=== PATIENT | female | born 1945 | race Caucasian/White ===

== ENCOUNTER 2021-02-01 09:06 | Outpatient (REF) | payer MEDICARE, OTHER, SELFPAY ==
[2021-02-01 11:57] LABS: Alanine Aminotransferase 11 U/L (0-31); Albumin Level 4.3 g/dL (3.5-5.0); Alkaline Phosphatase 72 U/L (39-117); Anion Gap 14 (12-20); Aspartate Amino Transferase 17 U/L (5-31); Bilirubin Total 0.9 mg/dL (0.0-1.0); Blood Urea Nitrogen 17 mg/dL (9-16); Calcium 9.3 mg/dL (8.4-10.2); Carbon Dioxide 28 mmol/L (22-29); Chloride 102 mmol/L (96-108); Cholesterol 164 mg/dL; Estimated Glomerular Filt Rate 49; Glucose Fasting 80 mg/dL (60-99); HDL Cholesterol 65 mg/dL; LDL Cholesterol Calculated 86 mg/dl; Potassium 4.4 mmol/L (3.3-5.1); Sodium 140 mmol/L (135-145); Total Protein 6.7 g/dL (6.5-8.0); Triglycerides 65 mg/dL
[2021-02-01 12:20] LABS: Free T4 (Free Thyroxine) 0.73 ng/dL (0.71-1.85); Thyroid Stimulating Hormone 21.17 uIU/mL (0.32-4.0)
== END 2021-02-01 09:07 | disposition home or self-care (01) ==
LOC: HO.MANLDS 09:06
PROVIDERS: PCP Internal Medicine; Visit Provider Internal Medicine
DX: E78.5 Hyperlipidemia, unspecified (principal); E02 Subclinical iodine-deficiency hypothyroidism; N18.30 Chronic kidney disease, stage 3 unspecified
CPT/HCPCS: 36415; 80053; 80061; 84439; 84443

== ENCOUNTER 2021-06-11 14:26 | Outpatient (REF) | payer MEDICARE, OTHER, SELFPAY ==
[2021-06-11 17:40] LABS: Free T4 (Free Thyroxine) 0.79 ng/dL (0.71-1.85); Thyroid Stimulating Hormone 15.17 uIU/mL (0.32-4.0)
== END 2021-06-11 14:27 | disposition home or self-care (01) ==
LOC: HO.MANLDS 14:26
PROVIDERS: PCP Internal Medicine; Visit Provider Internal Medicine
DX: E03.9 Hypothyroidism, unspecified (principal)
CPT/HCPCS: 36415; 84439; 84443

== ENCOUNTER 2021-07-23 08:58 | Outpatient (REF) | payer BC, SELFPAY ==
[2021-07-23 11:52] LABS: Cholesterol 146 mg/dL; HDL Cholesterol 53 mg/dL; LDL Cholesterol Calculated 80 mg/dl; Triglycerides 69 mg/dL
== END 2021-07-23 08:59 | disposition home or self-care (01) ==
LOC: HO.MANLDS 08:58
PROVIDERS: PCP Internal Medicine; Visit Provider Internal Medicine
DX: E78.00 Pure hypercholesterolemia, unspecified (principal)
CPT/HCPCS: 36415; 80061

== ENCOUNTER 2021-11-27 14:29 | Outpatient (REF) | payer BC, SELFPAY ==
[2021-11-27 19:25] LABS: Alanine Aminotransferase 14 U/L (0-31); Albumin Level 4.2 g/dL (3.5-5.0); Alkaline Phosphatase 79 U/L (39-117); Anion Gap 12 (12-20); Aspartate Amino Transferase 22 U/L (5-31); Blood Urea Nitrogen 15 mg/dL (9-16); Calcium 9.4 mg/dL (8.4-10.2); Carbon Dioxide 29 mmol/L (22-29); Chloride 103 mmol/L (96-108); Estimated Glomerular Filt Rate 48; Glucose Random 68 mg/dL (60-115); Potassium 4.1 mmol/L (3.3-5.1); Sodium 140 mmol/L (135-145); Total Protein 6.7 g/dL (6.5-8.0)
[2021-11-27 19:45] LABS: Free T4 (Free Thyroxine) 0.91 ng/dL (0.71-1.85); Thyroid Stimulating Hormone 10.49 uIU/mL (0.32-4.0)
== END 2021-11-27 14:30 | disposition home or self-care (01) ==
LOC: HO.MANLDS 14:29
PROVIDERS: PCP Internal Medicine; Visit Provider Internal Medicine
DX: E03.9 Hypothyroidism, unspecified (principal); E78.00 Pure hypercholesterolemia, unspecified; I10 Essential (primary) hypertension
CPT/HCPCS: 36415; 80053; 84439; 84443

== ENCOUNTER 2021-12-04 08:01 | Outpatient (REF) | payer BC, SELFPAY ==
[2021-12-04 11:23] LABS: MANUAL DIFF FLAG NO
[2021-12-04 11:31] LABS: Basophils Percent Auto 0.5 % (0-2); Eosinophils Absolute Auto 0.2 X10*3/uL (0.0-0.4); Eosinophils Percent Auto 3.1 % (0-4); Hematocrit 44.8 % (37.0-47.0); Hemoglobin 14.8 g/dl (12.0-16.0); Imm Gran Abs Auto 0.02 X10*3/uL (0.00-0.03); Imm Gran Pct Auto 0.3 % (0.0-0.4); Lymphocytes Absolute Auto 1.6 X10*3/uL (1.2-4.9); Lymphocytes Percent Auto 25.7 % (20-40); Mean Corpuscular Hemoglobin 29.8 pg (27.0-33.0); Mean Corpuscular Volume 90.3 fL (80.0-98.0); Mean Platelet Volume 10.7 fL (9.4-12.3); Monocytes Absolute Auto 0.5 X10*3/uL (0.1-1.2); Monocytes Percent Auto 8.2 % (2-11); Neutrophils Absolute Auto 3.9 x10*3/uL (2.0-8.3); Neutrophils Percent Auto 62.2 % (45-73); Platelet Count 239 X10*3/uL (160-400); Red Blood Count 4.96 X10*6/uL (4.20-5.50); White Blood Count 6.2 X10*3/uL (4.8-10.8)
[2021-12-04 11:58] LABS: Cholesterol 161 mg/dL; HDL Cholesterol 64 mg/dL; LDL Cholesterol Calculated 87 mg/dl; Triglycerides 53 mg/dL
[2021-12-05 12:26] LABS: Calcium (PTHI) 9.1 mg/dL (8.6-10.4); PTHI 86 pg/mL (14-64)
== END 2021-12-04 08:02 | disposition home or self-care (01) ==
LOC: HO.MANLDS 08:01
PROVIDERS: PCP Internal Medicine; Visit Provider Internal Medicine
DX: N18.30 Chronic kidney disease, stage 3 unspecified (principal); E02 Subclinical iodine-deficiency hypothyroidism
CPT/HCPCS: 36415; 80061; 83970; 85025

== ENCOUNTER 2022-05-23 11:48 | Outpatient (REF) | payer BC, SELFPAY ==
[2022-05-23 13:44] LABS: MANUAL DIFF FLAG NO
[2022-05-23 13:51] LABS: Basophils Percent Auto 0.5 % (0-2); Eosinophils Absolute Auto 0.2 X10*3/uL (0.0-0.4); Eosinophils Percent Auto 2.8 % (0-4); Imm Gran Abs Auto 0.03 X10*3/uL (0.00-0.03); Imm Gran Pct Auto 0.4 % (0.0-0.4); Lymphocytes Absolute Auto 1.9 X10*3/uL (1.2-4.9); Lymphocytes Percent Auto 22.2 % (20-40); Mean Corpuscular HGB Conc 32.6 g/dl (31.0-35.0); Mean Corpuscular Hemoglobin 29.1 pg (27.0-33.0); Mean Corpuscular Volume 89.1 fL (80.0-98.0); Mean Platelet Volume 10.2 fL (9.4-12.3); Monocytes Absolute Auto 0.8 X10*3/uL (0.1-1.2); Monocytes Percent Auto 9.3 % (2-11); Neutrophils Absolute Auto 5.4 x10*3/uL (2.0-8.3); Neutrophils Percent Auto 64.8 % (45-73); Platelet Count 252 X10*3/uL (160-400); Red Blood Count 5.16 X10*6/uL (4.20-5.50); Red Cell Distribution Width 12.7 % (11.0-16.0); White Blood Count 8.4 X10*3/uL (4.8-10.8)
[2022-05-23 14:07] LABS: Alanine Aminotransferase 9 U/L (0-31); Albumin Level 3.9 g/dL (3.5-5.0); Alkaline Phosphatase 70 U/L (39-117); Anion Gap 11 (12-20); Aspartate Amino Transferase 16 U/L (5-31); Bilirubin Total 1.1 mg/dL (0.0-1.0); Blood Urea Nitrogen 12 mg/dL (9-16); Calcium 9.2 mg/dL (8.4-10.2); Carbon Dioxide 28 mmol/L (22-29); Chloride 104 mmol/L (96-108); Estimated Glomerular Filt Rate 46; Glucose Random 77 mg/dL (60-115); Potassium 4.7 mmol/L (3.3-5.1); Sodium 138 mmol/L (135-145); Total Protein 6.3 g/dL (6.5-8.0)
[2022-05-23 14:09] LABS: Estimated Average Glucose 100 mg/dL; Hemoglobin A1c % 5.1 %
[2022-05-23 14:29] LABS: Free T4 (Free Thyroxine) 0.94 ng/dL (0.71-1.85); Thyroid Stimulating Hormone 8.76 uIU/mL (0.32-4.0)
[2022-05-23 14:35] LABS: Erythrocyte Sedimentation Rate 10 MM/HR (0-20)
[2022-05-23 14:46] LABS: Folate 10.6 ng/mL (> or = 4.0); Vitamin B12 > 2000 pg/mL (200-900)
== END 2022-05-23 11:49 | disposition home or self-care (01) ==
LOC: HO.MANLDS 11:48
PROVIDERS: Visit Provider Physician Assistant
DX: R41.3 Other amnesia (principal)
CPT/HCPCS: 36415; 80053; 82607; 82746; 83036; 84439; 84443; 85025; 85652; 86140

== ENCOUNTER 2023-06-10 10:52 | Outpatient (REF) | payer BC, SELFPAY ==
[2023-06-10 13:33] LABS: MANUAL DIFF FLAG NO
[2023-06-10 13:50] LABS: Basophils Absolute Auto 0.1 X10*3/uL (0.0-0.2); Basophils Percent Auto 0.8 % (0-2); Eosinophils Absolute Auto 0.2 X10*3/uL (0.0-0.4); Eosinophils Percent Auto 2.4 % (0-4); Hemoglobin 15.1 g/dl (12.0-16.0); Imm Gran Abs Auto 0.07 X10*3/uL (0.00-0.03); Imm Gran Pct Auto 0.9 % (0.0-0.4); Lymphocytes Absolute Auto 1.6 X10*3/uL (1.2-4.9); Lymphocytes Percent Auto 21.5 % (20-40); Mean Corpuscular HGB Conc 32.8 g/dl (31.0-35.0); Mean Corpuscular Hemoglobin 29.4 pg (27.0-33.0); Mean Corpuscular Volume 89.5 fL (80.0-98.0); Monocytes Absolute Auto 0.7 X10*3/uL (0.1-1.2); Neutrophils Absolute Auto 4.9 x10*3/uL (2.0-8.3); Neutrophils Percent Auto 65.4 % (45-73); Platelet Count 234 X10*3/uL (160-400); Red Blood Count 5.14 X10*6/uL (4.20-5.50); Red Cell Distribution Width 13.1 % (11.0-16.0); White Blood Count 7.5 X10*3/uL (4.8-10.8)
[2023-06-10 14:05] LABS: Estimated Average Glucose 94 mg/dL; Hemoglobin A1c % 4.9 %
[2023-06-10 14:55] LABS: Alanine Aminotransferase 9 U/L (0-31); Albumin Level 3.9 g/dL (3.5-5.0); Alkaline Phosphatase 72 U/L (39-117); Anion Gap 12 (12-20); Aspartate Amino Transferase 16 U/L (5-31); Bilirubin Total 1.1 mg/dL (0.0-1.0); Blood Urea Nitrogen 16 mg/dL (9-16); Calcium 9.3 mg/dL (8.4-10.2); Carbon Dioxide 24 mmol/L (22-29); Chloride 106 mmol/L (96-108); Estimated Glomerular Filt Rate 45; Glucose Random 113 mg/dL (60-115); Potassium 4.1 mmol/L (3.3-5.1); Sodium 138 mmol/L (135-145); Total Protein 6.6 g/dL (6.5-8.0)
[2023-06-10 15:13] LABS: Thyroid Stimulating Hormone 10.81 uIU/mL (0.32-4.0)
== END 2023-06-10 10:53 | disposition home or self-care (01) ==
LOC: HO.MANLDS 10:52
PROVIDERS: Visit Provider Physician Assistant
DX: E78.2 Mixed hyperlipidemia (principal); E03.8 Other specified hypothyroidism; N18.31 Chronic kidney disease, stage 3a
CPT/HCPCS: 36415; 80053; 83036; 84439; 84443; 85025

== ENCOUNTER 2023-09-23 12:21 | Outpatient (REF) | payer BC, SELFPAY ==
[2023-09-23 15:13] LABS: Alanine Aminotransferase 10 U/L (0-31); Alkaline Phosphatase 77 U/L (39-117); Anion Gap 15 (12-20); Aspartate Amino Transferase 19 U/L (5-31); Bilirubin Total 0.7 mg/dL (0.0-1.0); Blood Urea Nitrogen 18 mg/dL (9-16); Calcium 9.6 mg/dL (8.4-10.2); Carbon Dioxide 27 mmol/L (22-29); Chloride 104 mmol/L (96-108); Estimated Glomerular Filt Rate > 60; Glucose Random 81 mg/dL (60-115); Potassium 3.9 mmol/L (3.3-5.1); Sodium 142 mmol/L (135-145); Total Protein 6.7 g/dL (6.5-8.0)
[2023-09-23 15:24] LABS: TSH reflex Free T4 1.38 uIU/mL (0.32-4.0)
== END 2023-09-23 12:22 | disposition home or self-care (01) ==
LOC: HO.MANLDS 12:21
PROVIDERS: Visit Provider Internal Medicine
DX: E03.8 Other specified hypothyroidism (principal); N18.31 Chronic kidney disease, stage 3a
CPT/HCPCS: 36415; 80053; 84443

== ENCOUNTER 2024-02-22 14:00 | Outpatient (REF) | payer BC, SELFPAY ==
[2024-02-22 17:49] LABS: MANUAL DIFF FLAG NO
[2024-02-22 17:55] LABS: Basophils Absolute Auto 0.1 X10*3/uL (0.0-0.2); Basophils Percent Auto 0.7 % (0-2); Eosinophils Absolute Auto 0.2 X10*3/uL (0.0-0.4); Eosinophils Percent Auto 2.6 % (0-4); Hematocrit 47.7 % (37.0-47.0); Hemoglobin 15.5 g/dl (12.0-16.0); Imm Gran Abs Auto 0.03 X10*3/uL (0.00-0.03); Imm Gran Pct Auto 0.4 % (0.0-0.4); Lymphocytes Absolute Auto 2.2 X10*3/uL (1.2-4.9); Lymphocytes Percent Auto 25.9 % (20-40); Mean Corpuscular HGB Conc 32.5 g/dl (31.0-35.0); Mean Corpuscular Hemoglobin 29.7 pg (27.0-33.0); Mean Corpuscular Volume 91.4 fL (80.0-98.0); Mean Platelet Volume 10.7 fL (9.4-12.3); Monocytes Absolute Auto 0.8 X10*3/uL (0.1-1.2); Monocytes Percent Auto 9.8 % (2-11); Neutrophils Absolute Auto 5.1 x10*3/uL (2.0-8.3); Neutrophils Percent Auto 60.6 % (45-73); Platelet Count 244 X10*3/uL (160-400); Red Blood Count 5.22 X10*6/uL (4.20-5.50); Red Cell Distribution Width 13.1 % (11.0-16.0); White Blood Count 8.4 X10*3/uL (4.8-10.8)
[2024-02-22 18:27] LABS: Alanine Aminotransferase 10 U/L (0-31); Albumin Level 4.1 g/dL (3.5-5.0); Alkaline Phosphatase 83 U/L (39-117); Anion Gap 16 (12-20); Aspartate Amino Transferase 17 U/L (5-31); Bilirubin Total 0.6 mg/dL (0.0-1.0); Blood Urea Nitrogen 23 mg/dL (9-16); Calcium 9.4 mg/dL (8.4-10.2); Carbon Dioxide 25 mmol/L (22-29); Chloride 105 mmol/L (96-108); Estimated Glomerular Filt Rate 51; Glucose Random 77 mg/dL (60-115); Potassium 4.2 mmol/L (3.3-5.1); Sodium 142 mmol/L (135-145); Total Protein 6.7 g/dL (6.5-8.0)
[2024-02-22 18:29] LABS: Parathyroid Hormone Intact 145.7 pg/mL (8.7-77.1)
[2024-02-22 18:44] LABS: Thyroid Stimulating Hormone 4.41 uIU/mL (0.32-4.0)
== END 2024-02-22 14:01 | disposition home or self-care (01) ==
LOC: HO.MANLDS 14:00
PROVIDERS: Visit Provider Internal Medicine
DX: I10 Essential (primary) hypertension (principal); E03.8 Other specified hypothyroidism; E21.3 Hyperparathyroidism, unspecified
CPT/HCPCS: 36415; 80053; 82306; 83970; 84443; 85025

== ENCOUNTER 2024-08-23 09:54 | Outpatient (REF) | payer BC, SELFPAY ==
[2024-08-23 09:59] LABS: MANUAL DIFF FLAG NO
[2024-08-23 13:28] LABS: Basophils Absolute Auto 0.1 X10*3/uL (0.0-0.2); Basophils Percent Auto 0.7 % (0-2); Eosinophils Absolute Auto 0.2 X10*3/uL (0.0-0.4); Eosinophils Percent Auto 2.4 % (0-4); Hematocrit 45.6 % (37.0-47.0); Hemoglobin 15.2 g/dl (12.0-16.0); Imm Gran Abs Auto 0.01 X10*3/uL (0.00-0.03); Imm Gran Pct Auto 0.1 % (0.0-0.4); Lymphocytes Absolute Auto 1.5 X10*3/uL (1.2-4.9); Lymphocytes Percent Auto 20.9 % (20-40); Mean Corpuscular HGB Conc 33.3 g/dl (31.0-35.0); Mean Corpuscular Hemoglobin 29.7 pg (27.0-33.0); Mean Corpuscular Volume 89.1 fL (80.0-98.0); Mean Platelet Volume 10.8 fL (9.4-12.3); Monocytes Absolute Auto 0.5 X10*3/uL (0.1-1.2); Monocytes Percent Auto 6.8 % (2-11); Neutrophils Absolute Auto 5.1 x10*3/uL (2.0-8.3); Neutrophils Percent Auto 69.1 % (45-73); Platelet Count 212 X10*3/uL (160-400); Red Blood Count 5.12 X10*6/uL (4.20-5.50); Red Cell Distribution Width 13.2 % (11.0-16.0); White Blood Count 7.4 X10*3/uL (4.8-10.8)
[2024-08-23 14:08] LABS: Parathyroid Hormone Intact 126.4 pg/mL (8.7-77.1)
[2024-08-23 18:36] LABS: Alanine Aminotransferase 9 U/L (0-31); Albumin Level 3.9 g/dL (3.5-5.0); Alkaline Phosphatase 61 U/L (39-117); Anion Gap 12 (12-20); Aspartate Amino Transferase 17 U/L (5-31); Bilirubin Total 0.9 mg/dL (0.0-1.0); Blood Urea Nitrogen 18 mg/dL (9-16); Calcium 9.6 mg/dL (8.4-10.2); Carbon Dioxide 28 mmol/L (22-29); Chloride 106 mmol/L (96-108); Estimated Glomerular Filt Rate 58; Glucose Random 102 mg/dL (60-115); Iron 108 mcg/dL (30-160); Percent Iron Saturation 45 % (15-50); Phosphorus 3.5 mg/dL (2.7-4.5); Potassium 3.8 mmol/L (3.3-5.1); Sodium 142 mmol/L (135-145); Total Iron Binding Capacity 239 mcg/dL (228-428); Total Protein 6.4 g/dL (6.5-8.0); Unsaturated Iron Binding 131 ug/dL
== END 2024-08-23 09:55 | disposition home or self-care (01) ==
LOC: HO.MANLDS 09:54
PROVIDERS: Visit Provider Internal Medicine
DX: E21.3 Hyperparathyroidism, unspecified (principal)
CPT/HCPCS: 36415; 80053; 82306; 83540; 83970; 84100; 85025

== ENCOUNTER 2025-02-08 09:40 | Outpatient (REF) | payer BC, SELFPAY ==
--- OUTSIDE RECORDS SUMMARY | 2025-02-08 10:41 | XMS_ITS | Continuity of Care Document ---
Author Organization [facility] Internal [facility], [facility] Internal Medicine Address [address] [place] [address] [place] [address] Assessment No assessment recorded. Plan of Treatment Reminders Order Date Submit Date Provider Last Modified By Organization Details Last Modified Time Details Appointments FOLLOW UP 2024 09:15A M DR CAVANAUGH Not available Not available Not available Nurse Visit 2024 09:30A M [facility] Not available Not available Not available Lab None recorded. Referral None recorded. Procedures None recorded. Surgeries None recorded. Imaging None recorded. Medication Orders Vitamin B-12 1,000 mcg/mL injection solution 2024 025 [id number], [address] [place], [address], 01/30/2025 10:53:09 Patient TargetsNo targets recorded. Patient InstructionsNo instructions recorded. Reason for Referral None Reported. Problems Name Problem SNOMED Code Status Onset Date Resolution Date Notes Provider Name and Address Organization Details Recorded Time Decreased estrogen level 249030162 Active 2018 Ilene pino [facility] Internal [facility] 5 08:10:31 Memory impairment 689497600 Active 2021 Ilene pino [facility] 5 08:10:31 Hypothyroi dism 79861468 Active 2021 Ilene pino [facility] 5 08:10:31 Dementia of frontal lobe type 643136619 Active 2021 Ilene pino [facility] Internal [facility] 5 08:10:31 Bilateral hearing loss 01906262 Active 2022 Ilene pino [facility] 5 08:10:31 Bilateral hearing loss 85423959 Active 2022 Ilene Posadas null, [facility] 5 08:10:31 Osteoarthr itis 855739850 Active 2022 Ilene Posadas null, [facility] 5 08:10:31 Mature cataract 494248 Active 2022 Ilene Posadas null, [facility] 5 08:10:31 Low back pain 396636396 Active 2023 Ilene Posadas null, [facility] 5 08:10:31 Hyperparat hyroidism 23663566 Active 2023 Ilene pino, [facility] 5 08:10:31 Vitamin D deficiency 82204503 Active 2023 Ilene pino, [facility] 5 08:10:31 Basal cell carcinoma of face 873226079 [facility] Cellulitis of lower leg 177478409 Active 2023 Dale Cavanaugh, [address], [address], [facility] 4 20:45:15 Ecchymosis 767877686 [facility] 08:[facility] Vitamin B12 deficiency (non anemic) 53237047 Active 2024 Dale Cavanaugh [address], [address], [facility] 5 09:36:32 Essential hypertensi on 41906973 [facility] 08:[facility] Hyperlipid emia 10270321 Active [facility] 08:10:[facility] Left bundle branch block 19541246 Active 201701/08/16 [facility] 5 08:10:31 Chronic kidney disease stage 3 010427258 Active 2017 [facility] 5 08:10:31 Problem Notes None recorded. Medical Equipment None Reported. Allergies No known drug allergies Medications Name Sig Start Date Stop Date Status Note LastModified by Organization Details LastModified Time celecoxib 200 mg capsule TAKE 1 CAPSULE BY MOUTH EVERY DAY WITH FOOD active Not Available Not Available No t Available prednisone 10 mg tablet take 5 tabs x 3 daystake 4 tabs x 3 daystake 3 tabs x 3 daystake 2 tabs x 3 daystake 1 tab x 3 days 06/13 completed Not Available Not Available Not Available Vitamin B-12 1,000 mcg/mL injection solution Inject 1 mL every month by intramusc ular route. 2024 active Not Available Not Available Not Avai lable donepezil 5 mg tablet TAKE 1 TABLET BY MOUTH EVERY DAY 08/04 completed Not Available Not Available Not Available trazodone 50 mg tablet 06/28 completed Not Available Not Available Not Available atorvastati n 10 mg tablet TAKE 1 TABLET BY MOUTH EVERY DAY active Not Available Not Available No t Available donepezil 10 mg tablet TAKE 1 TABLET BY MOUTH EVERY DAY 2023 active Not Available Not Available Not Avai lable levothyroxi ne 75 mcg tablet TAKE 1 TABLET BY MOUTH EVERY DAY 06/10 completed Not Available Not Available Not Available ketorolac 0.5 % eye drops INSTILL 1 DROP INTO RIGHT EYE THREE TIMES A DAY START 2 DAYS PRIOR TO CATARACT SURGERY active Not Available Not Available No t Available levothyroxi ne 88 mcg tablet TAKE 1 TABLET BY MOUTH EVERY DAY 2023 active Not Available Not Available Not Avai lable levothyroxi ne 50 mcg tablet TAKE 1 TABLET BY MOUTH EVERY DAY 06/12 completed Not Available Not Available Not Available cephalexin 500 mg capsule TAKE 1 CAPSULE BY MOUTH TWICE A DAY FOR 10 DAYS 08/22 completed Not Available Not Available Not Available erythromyci n 5 mg/gram (0.5 %) eye ointment APPLY A SMALL AMOUNT INTO RIGHT EYE THREE TIMES A DAY active Not Available Not Available No t Available metoprolol tartrate 50 mg tablet TAKE 1 TABLET BY MOUTH TWICE A DAY active Not Available Not Available No t Available lisinopril 5 mg tablet TAKE 1 TABLET BY MOUTH EVERY DAY active Not Available Not Available No t Available mupirocin 2 % topical ointment APPLY A SMALL AMOUNT TO THE AFFECTED AREA BY TOPICAL ROUTE 3 TIMES PER DAY 06/11 completed Not Available Not Available Not Available doxycycline hyclate 100 mg tablet 06/28 completed Not Available Not Available Not Available naproxen 500 mg tablet Take 1 tablet twice a day by oral route with meals for 14 days. 12/27 completed Not Available Not Available Not Available PreserVisio n AREDS active Not Available Not Available Not Available diclofenac 1 % topical gel APPLY 2 GRAM TO THE AFFECTED AREA(S) BY TOPICAL ROUTE 4 TIMES PER DAY 01/30 completed Not Available Not Available Not Available Calcium with Vitamin D 600 mg-10 mcg (400 unit) tablet Take 1 tablet every day by oral route for 30 days. 08/14 completed Not Available Not Available Not Available bromfenac 0.07 % eye drops PLACE 1 DROP INTO SURGICAL EYE(S) ONCE DAILY AT BREAKFAST START 2 DAYS PRIOR TO SURGERY 04/05 completed Not Available Not Available Not Available Fluzone High-Dose 1428-2526 (PF) 180 mcg/0.5 mL intramuscul ar syringe 08/24 completed Not Available Not Available Not Available Fluad 65yr up(PF)45 mcg(15 mcgx3)/0.5 mL intramuscul ar syringe 06/13 completed Not Available Not Available Not Available Fluad Quad (6 5yr up)(PF) 60 mcg (15 mcg x 4)/0.5mL IM syringe 01/29 completed Not Available Not Available Not Available Vitals None Recorded Social History Question Answer Notes LastModified by Organizat ion Details LastModified Time Tobacco Smoking Status Never Smoker Not Available [facility] 03:36:24 What Was The Date Of Your Most Recent Tobacco Screening? 02/08/2025 [email or web address] Information not available 02/08/2025 Do You Or Have You Ever Used Any Other Forms Of Tobacco Or Nicotine? No [email or web address] Information not available 05/23/2022 Sex: Unknown Functional Status None recorded. Mental Status None recorded. Family History Nothing Reported. Medical History No medical history recorded. Gynecological HistoryNo gynecological history recorded. Obstetrics History GPAL:G 0 P 0 0 0 0 Immunizations Vaccine Type Date Status Note Provider Nam e and Address Organization Details Recorded Time pneumococcal, unspecified formulation 6 completed Not Available [facility] 11/11/2021 17:13:36 Influenza, split virus, quadrivalent, preservative 1 completed Not Available [facility] 11/11/2021 17:13:36 COVID-19, mRNA, LNP-S, PF, 100 mcg/0.5mL dose or 50 mcg/0.25mL dose 2 [facility] 10:15:18 Influenza, split virus, quadrivalent, preservative 8 completed Not Available [facility] 11/11/2021 17:13:36 COVID-19, mRNA, LNP-S, bivalent, PF, 10 mcg/0.2 mL 3 completed Anaya pino [facility] 12/05/2022 08:28:57 Influenza, split virus, quadrivalent, preservative 9 completed Not Available [facility] 11/11/2021 17:13:36 Influenza, split virus, quadrivalent, preservative 0 completed Not Available [facility] 11/11/2021 17:13:36 COVID-19, mRNA, LNP-S, PF, 30 mcg/0.3 mL dose 1 completed Not Available [facility] 11/11/2021 17:13:36 COVID-19, mRNA, LNP-S, PF, 30 mcg/0.3 mL dose 1 completed Not Available [facility] 11/11/2021 17:13:36 Past Encounters Encounter ID Performer Location Encounter Start Date Encounter Closed Date Diagnosis/Indication Diagnosis SNOMED-CT Code Diagnosis ICD10 Code Diagnosis Note [id number] Dale Cavanaugh [facility] [address],[place] [address] 01/30/2025 10:34:52 01/30/2025 11:43:28 Cobalamin deficiency 514587644 E53.8 Health Concerns Section Related Observation LastModified by Organization Detai ls LastModified Time None Recorded Concern Status LastModified by Organization Details LastModified Time None Recorded Payers Encounter Date Sequence Insurance Name Policy Number Policy Rubio Covered Member ID Rubio Member ID Guarantor Name 01/30/2025 1 [employer] [employer] [id number] Teresa Cyr [id number] Teresa Cyr OBGyn Episode No OBEpisode recorded.
--- OUTSIDE RECORDS SUMMARY | 2025-02-08 10:41 | XMS_ITS | Data Portability ---
Author Organization [facility] Address [address] [place] [address] Assessment Encounter Date Assessment Date Assessment LastModified by Organization Details LastModified Time 02/08/2025 02/08/2025 [address] [place] [address] ([employer]INION) MDM HIGH MUST MEET 2 OUT OF 3 ELEMENTS: PROBLEMS, DATA OR RISK ELEMENT 1: PROBLEMS 1 OR MORE CHRONIC ILLNESS W/SEVERE EXACERBATION, PROGRESSION MAY REQUIRE HOSPITAL LEVEL CARE OR 1 ACUTE OR CHRONIC ILLNESS OR INJURY THAT POSES A THREAT TO LIFE OR BODILY FUNCTION ELEMENT 2: DATA: MUST MEET 2 OF 3 CATEGORIES CATEGORY 1 REVIEW OF PRIOR EXTERNAL NOTES REVIEW OF THE RESULTS ORDERING OF EACH TEST ASSESSMENT REQUIRING INDEPENDENT HISTORIAN(S) CATEGORY 2: INDEPENDENT INTERPRETATION OF TESTS BY ANOTHER PROVIDER/SPECIALI ST CATEGORY 3: DISCUSSION OF MGT OR TEST INTERPRETATION W/EXTERNAL PHYSICIAN/SPECIAL IST ELEMENT 3: RISK HIGH RISK OF MORBIDITY FROM ADDITIONAL DIAGNOSTIC TESTING OR TREATMENT PROVIDER MUST THOROUGHLY DOCUMENT EACH ELEMENT THAT IS COVERED The patient presented to their appointment today for multiple concerns requiring moderate to high-level decision making and took over 40-45 minutes for an adequate and appropriate history, exam, assessment and treatment plan. This appointment was done with an established patient. Not available 02/08/2025 09:34:58 Plan of Treatment Reminders Order Date Submit Date Provider Last Modified By Organization Details Last Modified Time Details Appointments FOLLOW UP 15 2024 09:15A M DR CAVANAUGH Not available Not available Not available Nurse Visit 15 2024 09:30A M [facility] Not available Not available Not available Lab CMP, serum or plasma 2024 025 [facility], [address] [place] [address], [place], [address], 02/08/2025 09:39:08 CBC w/ auto diff 2024 [facility], [address] [place] [address], [address], 02/08/2025 09:39:08 phosphoru s, serum or plasma 2024 [facility], [address] [place] [address], [id number], 02/08/2025 09:39:07 vitamin B12, serum 2024 [facility], [address] [place] [address], [address], 02/08/2025 09:39:07 vitamin D, 25-hydrox y, total, serum 2024 025 [facility], [address] [place] [address], [address], 02/08/2025 09:39:08 PTH (parathyr oid hormone), intact, serum or plasma 2024 025 [facility], [address] [place] [address], [address], 02/08/2025 09:39:08 magnesium , serum or plasma 2024 025 [facility], [address] [place] [address], [address], 02/08/2025 09:39:08 TSH, serum or plasma 2024 025 [facility], [address] [place] [address], [address], 02/08/2025 09:39:08 Referral None recorded. Procedures None recorded. Surgeries None recorded. Imaging None recorded. Medication Orders Vitamin B-12 1,000 mcg/mL injection solution 2024 025 [facility]2025, [address] [place], [address], 01/30/2025 10:53:09 cyanocoba ny (vit B-12) 1,000 mcg/mL injection solution 2024 025 [email or web address], [address] [place], [address], 12/14/2024 10:06:36 Vitamin B-12 1,000 mcg/mL injection solution 2023 024 [facility], [address] [place], [address], 11/16/2024 10:12:35 Vitamin B-12 1,000 mcg/mL injection solution 2023 024 [facility], [address] [place], [address], 10/13/2024 16:11:59 Patient TargetsNo targets recorded. Patient Instructions Encounter Date Encounter Id Patient Instructions Last Modified By Organization Details Last Modified Time 02/08/2025 [id number] medicines to avoid with kidney disease: care instructions Not available 02/08/2025 09:37:48 high cholesterol : care instructions Not available 02/08/2025 09:37:48 high blood pressure: care instructions Not available 02/08/2025 09:37:48 learning about high blood pressure Not available 02/08/2025 09:37:48 hypothyroidism: care instructions Not available 02/08/2025 09:37:48 Reason for Referral None Reported. Problems Name Problem SNOMED Code Status Onset Date Resolution Date Notes Provider Name and Address Organization Details Recorded Time Decreased estrogen level 273529055 Active 2018 [facility] 5 08:10:31 Memory impairment 288337375 Active 2021 [facility] 5 08:10:31 Hypothyroi dism 18686991 Active 2021 Ilene Posadas null, [facility] 5 08:10:31 Dementia of frontal lobe type 727936873 Active 2021 Ilene Posadas null, [facility] 5 08:10:31 Bilateral hearing loss 75455219 Active 2022 Ilene Posadas null, [facility] 5 08:10:31 Bilateral hearing loss 89818670 Active 2022 Ilene Posadas null, [facility] 5 08:10:31 Osteoarthr itis 460938651 Active 2022 Ilene Posadas null, [facility] 5 08:10:31 Mature cataract 291794 Active 2022 Ilene Posadas null, [facility] 5 08:10:31 Low back pain 753287807 Active 2023 Ilene Cuauhtemoc null, [facility] 5 08:10:31 Hyperparat hyroidism 82967843 Active 2023 Ilene Posadas null, [facility] 5 08:10:31 Vitamin D deficiency 76411303 Active 2023 Ilenecody Posadas null, [facility] 5 08:10:31 Basal cell carcinoma of face 073214289 Active 2023 Ilene Cuauhtemoc null, [facility] 5 08:10:31 Cellulitis of lower leg 121190445 Active 2023 Dale Cavanaugh, DO [address] [place] [address], [id number], [place] [facility] 4 20:45:15 Ecchymosis 174364478 Active 2023 Ilenecody Posadas null, [facility] 5 08:10:31 Vitamin B12 deficiency (non anemic) 43339599 Active 2024 Dale Cavanaugh, [address] [place] [address], [id number], [facility] 5 09:36:32 Essential hypertensi on 52687452 Active 2017 Ilene pino [facility] 5 08:10:31 Hyperlipid emia 14268839 Active 2017 Ilene pino [facility] Internal [facility] 5 08:10:31 Left bundle branch block 69630855 Active 201701/08/16 Ilene pino [facility] 5 08:10:31 Chronic kidney disease stage 3 368546829 Active 2017 Ilenecody pino [facility] 5 08:10:31 Problem Notes None [...] Available Not Available Not Available Fluzone High-Dose 7003-1592 (PF) 180 mcg/0.5 mL intramuscul ar syringe 08/24 completed Not Available Not Available Not Available Fluad 65yr up(PF)45 mcg(15 mcgx3)/0.5 mL intramuscul ar syringe 06/13 completed Not Available Not Available Not Available Fluad Quad 3997-0844(6 5yr up)(PF) 60 mcg (15 mcg x 4)/0.5mL IM syringe 01/29 completed Not Available Not Available Not Available Vitals Date Recorded Body height Body mass index (BMI) Body weight Heart rate Oxygen saturation Oxygen saturation in Arterial blood by Pulse oximetry Systolic blood pressure Diastolic blood pressure Provider Name and Address Organization Details Last Updated DateTime 5 153.04 cm 38.7 kg/m2 52662.4 7 g 62 /min 98 % 98 % 132 mm[Hg] 82 mm[Hg] Ilene Posadas [facility] 5 09:29:13 Social History Question Answer Notes LastModified by Organizat ion Details LastModified Time Tobacco Smoking Status Never Smoker Not Available [facility] 10/02/2020 03:36:24 What Was The Date Of [...] pneumococcal, unspecified formulation 6 completed Not Available [facility] 11/11/2021 17:13:36 Influenza, split virus, quadrivalent, preservative 1 completed Not Available [facility] 11/11/2021 17:13:36 COVID-19, mRNA, LNP-S, PF, 100 mcg/0.5mL dose or 50 mcg/0.25mL dose 2 completed Awa pino [facility] 12/09/2021 10:15:18 Influenza, split virus, quadrivalent, preservative 8 completed Not Available [facility] 11/11/2021 17:13:36 COVID-19, mRNA, LNP-S, bivalent, PF, 10 mcg/0.2 mL 3 completed Anaya pino [facility] 12/05/2022 08:28:57 Influenza, split virus, quadrivalent, preservative 9 completed Not Available [facility] 11/11/2021 17:13:36 Influenza, split virus, quadrivalent, preservative 0 completed Not Available [facility] 11/11/2021 17:13:36 COVID-19, mRNA, LNP-S, PF, 30 mcg/0.3 mL dose 1 completed Not Available [facility] 11/11/2021 17:13:36 COVID-19, mRNA, LNP-S, PF, 30 mcg/0.3 mL dose 1 completed Not Available [facility] 11/11/2021 17:13:36 Past Encounters Encounter ID Performer Location Encounter Start Date Encounter Closed Date Diagnosis/Indication Diagnosis SNOMED-CT Code Diagnosis ICD10 Code Diagnosis Note [id number] Dale Cavanaugh [facility] [address] [place] [address] 03/12/2018 09:19:52 03/12/2018 09:59:45 Cobalamin deficiency 586186218 E53.8 [id number] Dale Cavanaugh [facility] [address] [address] 04/02/2018 08:53:49 04/02/2018 11:19:57 Cobalamin deficiency 912574212 E53.8 [id number] Dale Cavanaugh [facility] [address] [address] 05/03/2018 09:11:06 05/05/2018 08:07:30 Vitamin B12 deficiency (non anemic) 39288560 E53.8 [id number] Dale Cavanaugh [facility] [address] [address] 06/07/2018 09:29:16 06/07/2018 10:19:02 Cobalamin deficiency 169973114 E53.8 [id number] KEVYN Ramsay [facility] [address] [place] [address] 06/28/2018 09:10:20 06/28/2018 09:40:03 Chronic kidney disease stage 3 289664979 N18.3 Hyperlipidemia 32688169 E78.5 Essential hypertension 50935876 I10 [facility] hypothyroidism 68327485 E03.9 [id number] Dale Cavanaugh [facility] [address] [facility] [address],[place] [address] 07/05/2018 09:07:57 07/05/2018 12:09:56 Cobalamin deficiency 753532865 E53.8 [id number] Dale Cavanaugh [facility] [address] [facility] [address],[place] [address] 08/04/2018 09:27:32 08/04/2018 14:10:36 Cobalamin deficiency 659789804 E53.8 [id number] Estefania Britton NP, S [facility] [address] [facility] [address],[place] [address] 08/24/2018 09:57:59 08/24/2018 15:47:40 Essential hypertension 38650329 I10 stable, up to date labs Synovial cyst of knee 24 8009451 M71.21 rest, ice prn, call if no better [id number] Dale Cavanaugh [facility] [address] [facility] [address],[place] [address] 09/03/2018 08:51:23 09/03/2018 08:59:42 Cobalamin deficiency 952913201 E53.8 [id number] Dale Cavanaugh [facility] [address] [facility] [address],[place] [address] 10/01/2018 09:00:34 10/01/2018 09:13:51 Cobalamin deficiency 901701763 E53.8 [id number] Dale Cavanaugh [facility] [address] [facility] [address],[place] [address] 11/01/2018 09:14:20 11/01/2018 15:50:29 Cobalamin deficiency 735233971 E53.8 [id number] Dale Cavanaugh [facility] [address] [facility] [address],[place] [address] 12/01/2018 09:15:08 12/01/2018 09:57:29 Cobalamin deficiency 770499896 E53.8 [id number] [facility] [address] [facility] [address] [place] [address] 12/07/2018 14:29:12 12/07/2018 15:08:22 Pain in left knee 0635903725 58311 M25.562 likely OA, will send to PT and do NSAIDS [facility] hypothyroidism 10774316 E03.9 awaiting labs Chronic ki dney disease stage 3 028134094 N18.3 awaiting labs Hyperlipidemia 63539348 E78.5 awaiting labs Essential hypertension 15443206 [place] [id number] [facility] [address] [facility] [address] [place] [address] 12/27/2018 08:59:09 12/27/2018 09:44:09 Subclinical hypothyroidism 12389611 E03.9 normal labs Chronic ki dney disease stage 3 559923443 N18.3 stable with GFR 52, normal BUN/creat Hyperlipidemia 78736653 E78.5 all normal and at goal Essential hypertension 32978784 I10 stable Body mass index 40+ - severely obese 818775404 Z68.41 healthy diet and exercise [id number] Dale Cavanaugh DO [facility] [address] [facility] [address] 01/03/2019 09:47:11 01/03/2019 14:24:10 Cobalamin deficiency 868441319 E53.8 [id number] [facility] [address] [facility] [address] [place] [place] [place] [facility] [place] [address] 01/10/2019 13:27:46 01/10/2019 14:03:39 Subclinical hypothyroidism 67783998 E03.9 normal labs Essential hypertension 50115461 I10 mildly elevated ? if this is causing tinnitus will add lisinopril then reccheck BP Tinnitus 34077280 H93.13 with 2 extremely brief dizzy episodes [id number] Estefania Britton NP, S [facility] [address] [facility] [place] [place] [place] [facility] [place] [address] 02/04/2019 10:12:48 02/04/2019 10:39:43 Cobalamin deficiency 377451153 E53.8 Chronic ki dney disease stage 3 926131094 N18.3 creat 1.04,GFR 52 Hyperlipidemia 95431997 E78.2 Essential hypertension 38552799 I10 stable, up to date labs [id number] Dale Cavanaugh [facility] [address] [facility] [address] [place] [address] 03/07/2019 09:25:52 03/07/2019 10:03:13 Cobalamin deficiency 657073205 E53.8 [id number] Dale Cavanaugh [facility] [address] [facility] [address] [place] [address] 04/06/2019 09:28:23 04/06/2019 09:44:10 Cobalamin deficiency 291915626 E53.8 [id number] Dale Cavanaugh [facility] [address] [facility],[place] [address] 05/06/2019 09:27:33 05/06/2019 09:50:20 Cobalamin deficiency 668846468 E53.8 [id number] [facility] [address] [facility] [address] [place] [address] 06/06/2019 09:28:38 06/06/2019 09:36:51 Cobalamin deficiency 575483025 E53.8 [id number] [facility] [address] [facility] [address] [place] [address] 06/08/2019 09:14:07 06/08/2019 11:39:56 Low back pain 781016539 M54.5 Essential hypertension 13089909 I10 Chronic ki dney disease stage 3 923525521 N18.3 needs lab for follow up has been > 6 mo Varicose v eins of lower extremity 61955222 I83.93 [id number] February [facility] [address] [facility] [address],[place] [address] 06/27/2019 09:14:11 06/27/2019 09:52:04 Adult health examination 186645657 Z00.00 hcp, molst ppw provided Traea l hypothyroidism 54064537 E03.9 normal labs in november Chronic ki dney disease stage 3 014441538 N18.3 stable with GFR 53, normal BUN/creat Hyperlipidemia 84882599 E78.5 all normal and at goal in november on atorvastat in Essential hypertension 88461594 I10 Decreased estrogen level 801613898 E28.39 [id number] Dale Cavanaugh [facility] [address] [place] [address],[place] [address] 07/06/2019 09:27:56 07/06/2019 09:45:51 Cobalamin deficiency 364408591 E53.8 [id number] Dale Cavanaugh [facility] [address] [address] 08/05/2019 09:27:45 08/05/2019 10:18:08 Cobalamin deficiency 450995336 E53.8 [id number] Dale Cavanaugh [facility] [address] [address] 09/07/2019 09:27:04 09/07/2019 14:18:56 Cobalamin deficiency 979494579 E53.8 [id number] Dale Cavanaugh [facility] [address],[place] [address] 10/12/2019 09:27:34 10/12/2019 09:36:39 Cobalamin deficiency 908985898 E53.8 [id number] Dale Cavanaugh [facility] [address] [address] 11/07/2019 09:28:28 11/07/2019 09:34:23 Cobalamin deficiency 370924481 E53.8 [id number] Dale Cavanaugh [facility] [address] [address] 12/07/2019 09:26:05 12/07/2019 09:35:44 Cobalamin deficiency 214997484 E53.8 [id number] Dale Cavanaugh [facility] [address] [place] [address] 01/11/2020 09:26:55 01/11/2020 10:34:18 Cobalamin deficiency 418541198 E53.8 [id number] KEVYN Ramsay [facility] [address] [facility] [address] [place] [address] 01/31/2020 09:27:36 01/31/2020 10:29:04 Low back pain 322209581 M54.5 declines PT/ortho at this time will try pred + home stretches if sx persist will recommend ortho can take tylenol Body mass index 40+ - severely obese 657548233 Z68.41 healthy diet and exercise Chronic ki dney disease stage 3 084907116 N18.3 stable with GFR 53, normal BUN/creat Essential hypertension 29561950 I10 [id number] Dale Cavanaugh [facility] [address] [facility],[place] [address] 02/08/2020 09:27:05 02/08/2020 10:00:44 Cobalamin deficiency 137226751 E53.8 [id number] Dale Cavanaugh [facility] [address] [facility] [address] [place] [address] 03/12/2020 09:28:13 03/12/2020 09:46:29 Cobalamin deficiency 067622064 E53.8 [id number] Dale Cavanaugh [facility] [address] [facility] [address] [place] [address] 04/11/2020 09:25:11 04/11/2020 12:27:12 Cobalamin deficiency 064513649 E53.8 [id number] Dale Cavanaugh [facility] [address] [facility] [address] [place] [address] 05/11/2020 09:27:51 05/11/2020 10:24:49 Cobalamin deficiency 897711896 E53.8 [id number] Dale Cavanaugh [facility] [address] [facility] [address] [place] [address] 06/11/2020 09:27:37 06/11/2020 10:55:25 Cobalamin deficiency 141887653 E53.8 [id number] Dale Cavanaugh DO [facility] [address] [facility] [address] 06/13/2020 10:15:30 06/13/2020 10:55:38 Edema of lower extremity 822572311 R60.0 Increased edema at end of day and none in morning Rec compressio n stockings and elevating feet during day Essential hypertension 41252678 I10 Slightly elevated today Cellulitis of right lower limb 3673489834 8713704 L03.115 from working outside right lwer inner leg is irritated from a scrape no obvious puncture has local erythema [id number] ANTONIO GR [facility] [address] [facility], [place] [address] 07/04/2020 15:14:04 07/04/2020 15:58:18 Essential hypertension 75459138 I10 BP is good today well controlled on medication Venous ins ufficiency of leg 882204238 I87.2 the patient most likely has underlying venous insufficie ncy leading to her swelling, magda with a lot of activity and hot weather Edema of l ower extremity 755270972 R60.0 will try conservati ve treatment right now [id number] Dale Cavanaugh [facility] [address] [facility], ite [facility] [address] 07/11/2020 09:28:51 07/11/2020 09:48:05 Cobalamin deficiency 845991065 E53.8 [id number] Dale Cavanaugh DO [facility] [address] [facility] [address] 08/13/2020 09:28:17 08/13/2020 12:14:00 Cobalamin deficiency 076181857 E53.8 [id number] Dale Cavanaugh [facility] [address] [facility],[place] [address] 09/14/2020 09:31:24 09/14/2020 09:37:18 Cobalamin deficiency 813712967 E53.8 [id number] Dale Cavanaugh [facility] [address] [facility] [address] [place] [address] 10/15/2020 09:26:29 10/15/2020 11:05:57 Cobalamin deficiency 956561700 E53.8 [id number] Dale Gottlieb Earl [facility] [address] [facility] [address],[place] [address] 11/19/2020 09:40:06 11/19/2020 09:59:05 Cobalamin deficiency 251764197 E53.8 [id number] Dale Gottlieb Earl [facility] [address] [facility] [address] [place] [address] 01/04/2021 09:49:52 01/04/2021 11:03:02 Cobalamin deficiency 162105204 E53.8 [id number] Dale RamirezNilsa Cavanaugh [facility] [address] [facility],[place] [address] 01/29/2021 14:28:09 01/29/2021 15:08:17 Essential hypertension 99721951 I10 bp has been doing well no major issues Hyperlipidemia 30972937 E78.5 we will need to have this rechecked for the next lab draw [facility] hypothyroidism 94266543 E02 will need tsh checked and have this done at next draw Chronic ki dney disease stage 3 100565705 N18.30 we will need to rechk and get a cmp [id number] Dale RamirezNilsa Cavanaugh [facility] [address] [facility] [address],[place] [address] 02/13/2021 09:52:07 02/13/2021 10:20:02 Cobalamin deficiency 854286844 E53.8 [id number] Dale RamirezNilsa Cavanaugh [facility] [address] [facility] [address],[place] [address] 03/11/2021 09:53:03 03/11/2021 10:29:18 Cobalamin deficiency 647610092 E53.8 [id number] Dale RamirezNilsa Cavanaugh [facility] [address] [facility] [address],[place] [address] 04/12/2021 09:55:53 04/12/2021 15:11:55 Cobalamin deficiency 760452500 E53.8 [id number] [facility] [address] [facility] [address] [place] [address] 05/13/2021 10:00:04 05/13/2021 10:13:52 Cobalamin deficiency 883165580 E53.8 [id number] Dale Cavanaugh [facility] [address] [facility] [address] [place] [address] 06/11/2021 13:56:29 06/11/2021 14:30:16 Hyperlipidemia 66256953 E78.5 we will need to have this rechecked for the next lab draw Essential hypertension 69736592 I10 bp has been doing well no major issues Body mass index 40+ - severely obese 598202919 Z68.41 discussed with the pt the need to lose wgt Hypothyroidism 26257577 E03.9 will be following tsh as it was markedly elevated [id number] [facility] [address] [facility] [address] [place] [address] 06/12/2021 09:56:15 06/12/2021 11:40:22 Cobalamin deficiency 204396393 E53.8 [id number] Dale Cavanaugh [facility] [address] [facility] [address] [place] [address] 07/15/2021 10:00:30 07/15/2021 12:13:18 Cobalamin deficiency 959247699 E53.8 [id number] [facility] [address] [facility] [address] [place] [address] 08/14/2021 10:00:24 08/14/2021 14:45:00 Cobalamin deficiency 538088810 E53.8 [id number] [facility] [address] [facility] [place] [address] 09/16/2021 10:02:48 09/16/2021 11:16:56 Cobalamin deficiency 170793659 E53.8 [id number] Dale Cavanaugh [facility] [address] [place] [address] 10/14/2021 09:55:56 10/14/2021 10:14:19 Cobalamin deficiency 782357978 E53.8 [id number] Dael Cavanaugh [facility] [address] [place] [address] 11/12/2021 08:10:11 11/12/2021 15:57:59 Essential hypertension 03154520 I10 bp has been doing well no major issues Chronic ki dney disease stage 3 183684195 N18.30 we will need to rechk and get a cmp [facility] hypothyroidism 38950382 E02 will need tsh checked and have this done at next draw [id number] Dale Cavanaugh [facility] [address] [place] [address] 01/13/2022 11:35:05 01/13/2022 14:08:57 Cobalamin deficiency 786002681 E53.8 [id number] Dale Cavanaugh [facility] [address] [place] [address] 02/12/2022 09:55:44 02/12/2022 16:51:41 Cobalamin deficiency 928154721 E53.8 [id number] Dale Cavanaugh [facility] [address] [place] [address] 03/14/2022 10:27:36 03/18/2022 13:45:57 Cobalamin deficiency 069703615 E53.8 [id number] Dale Cavanaugh [facility] [address] [place] [address] 04/14/2022 10:26:56 04/14/2022 12:16:52 Cobalamin deficiency 604000717 E53.8 [id number] Dale Cavanaugh [facility] [address],[place] [address] 05/21/2022 09:45:42 05/21/2022 09:52:38 Cobalamin deficiency 107230739 E53.8 [id number] ANTONIO GR [facility] [address] [facility],[place] [address] 05/23/2022 11:05:42 05/23/2022 14:34:58 Memory impairment 196925088 R41.3 will fu with full evaluation before discussing medication for dementiawi ll also set up with services through the [facility] [id number] Dale Cavanaugh [facility] [address],[place] [address] 06/18/2022 09:57:42 06/18/2022 13:20:48 Cobalamin deficiency 284707764 E53.8 [id number] ANTONIO GR [facility] [address],[place] [address] 06/27/2022 11:11:25 06/27/2022 11:57:03 Body mass index 40+ - severely obese 503966685 Z68.41 discussed with patient and family Chronic ki dney disease stage 3 969094015 N18.31 stable Active or passive immunization 769071189 Z23 patient advised she is due for tdap, shingles & pneu Dementia o f frontal lobe type 663370865 G31.09 will start on donepezil after discussion with patient [id number] Dale Cavanaugh [facility] [address] [facility],[place] [address] 07/21/2022 10:00:42 07/21/2022 13:51:02 Cobalamin deficiency 377651532 E53.8 [id number] Dale Cavanaugh [facility] [address] [facility],[place] [address] 08/22/2022 10:00:32 08/22/2022 13:43:12 Cobalamin deficiency 141188838 E53.8 [id number] Dale Cavanaugh DO [facility] [address] [facility] [address],[place] [address] 09/22/2022 09:58:05 09/22/2022 12:13:48 Cobalamin deficiency 287569506 E53.8 [id number] Dale Cavanaugh [facility] [address] [facility] [address],[place] [address] 10/22/2022 10:04:39 10/22/2022 11:41:28 Cobalamin deficiency 120319438 E53.8 [id number] Dale Cavanaugh [facility] [address] [facility] [address],[place] [address] 11/26/2022 09:40:35 11/26/2022 09:56:42 Cobalamin deficiency 333015335 E53.8 [id number] Dale Cavanaugh [facility] [address] [facility] [place] [address] 01/05/2023 09:49:05 01/05/2023 10:30:17 Cobalamin deficiency 396155168 E53.8 [id number] Dale Cavanaugh [facility] [address] [facility] [address],[place] [address] 02/04/2023 09:36:32 02/04/2023 14:26:52 Cobalamin deficiency 307449587 E53.8 [id number] Dale Cavanaugh [facility] [address] [facility] [address],[place] [address] 02/25/2023 09:28:45 02/25/2023 11:45:40 Cobalamin deficiency 540807093 E53.8 [id number] Dale Cavanaugh [facility] [address] [facility] [place] [address] 03/27/2023 09:33:02 03/27/2023 13:32:27 Cobalamin deficiency 798630386 E53.8 [id number] Dale Cavanaugh [facility] [address] [facility] [address],[place] [address] 04/29/2023 09:33:55 04/29/2023 14:02:13 Cobalamin deficiency 102461133 E53.8 [id number] Dale Cavanaugh [facility] [address] [facility],[place] [address] 05/29/2023 09:29:59 05/29/2023 10:08:38 Cobalamin deficiency 554317597 E53.8 [id number] ANTONIO GR [facility] [address] [facility] [address] 06/10/2023 10:19:17 06/10/2023 11:44:20 Active or passive immunization 188050224 Z23 patient advised she is due for tdap, shingles & pneu Adult [facility] th examination 766030987 Z00.00 discussed her mood and her memoryno changes since last visit Chronic ki dney disease stage 3 153765185 N18.31 stable Hyperlipidemia 99243981 E78.2 will set up with refill of medication s Hypothyroidism 36508338 E03.8 needs recheck Bilateral hearing loss 33081105 H91.13 will set up with audiology Body mass index 40+ - severely obese 349538435 Z68.41 discussed with patient and family Dementia o f frontal lobe type 807067433 G31.09 continued on donepezil Osteoarthritis 468148211 M15.0 [place] take it in the AM [id number] Dale Cavanaugh [facility] [address] [facility] [address] 06/29/2023 09:44:22 06/29/2023 11:25:36 Cobalamin deficiency 563892153 E53.8 [id number] Dale Cavanaugh [facility] [address] [facility] [address] 07/29/2023 09:29:46 07/29/2023 10:59:20 [id number] ANTONIO GR [facility] [address] [facility],[place] [address] 08/14/2023 09:31:45 08/14/2023 11:10:25 Chronic kidney disease stage 3 713382424 N18.31 stable Hyperlipidemia 45951299 E78.2 stable Essential hypertension 91812648 I10 BP is stable Hypothyroidism 44204929 E03.8 needs recheck [id number] ANTONIO GR [facility] [address] [facility] [place] [address] 08/21/2023 14:32:48 08/21/2023 16:16:13 Dementia of frontal lobe type 526635730 G31.09 conts on donepezils et up [facility] Hyperlipidemia 98521736 E78.2 stable Hypothyroidism 44212206 E03.8 needs recheck [id number] Dale Cavanaugh [facility] [address] [facility] [address],[place] [address] 08/28/2023 09:32:01 08/28/2023 13:32:22 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 [id number] Dale Cavanaugh [facility] [address] [facility] [address],[place] [address] 09/21/2023 14:27:49 09/21/2023 15:35:24 Hypothyroidism 71388964 E03.8 needs tsh done Essential hypertension 73565670 I10 bp has been doing well no major issues Chronic ki dney disease stage 3 674510049 N18.31 we will need to rechk and get a cmp 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 cleared for procedure [id number] Dale Cavanaugh DO [facility] [address] [facility] [address],[place] [address] 09/25/2023 10:00:41 09/25/2023 12:13:12 Cobalamin deficiency 172535041 E53.8 [id number] Dale Cavanaugh [facility] [address] [facility] [address],[place] [address] 10/26/2023 09:36:19 10/26/2023 09:43:19 Cobalamin deficiency 594294842 E53.8 [id number] Dale Cavanaugh [facility] [address] [facility] [place] [address] 12/07/2023 10:24:56 12/07/2023 11:17:13 Cobalamin deficiency 078097505 E53.8 [id number] Dale Cavanaugh [facility] [address] [facility] [place] [address] 01/06/2024 09:52:09 01/06/2024 11:53:48 Cobalamin deficiency 594506878 E53.8 [id number] Dale Cavanaugh, [facility] [address] [facility] [place] [address] 01/08/2024 09:49:23 01/08/2024 14:39:06 Low back pain 039933148 M54.50 we will start with an xray and go from there Mature cataract 437012 H25.89 had surgery and did great able to see they will do other in february ANTONIO GR [facility] [address] [facility] [place] [address] 02/08/2024 09:36:05 02/08/2024 10:26:00 Cobalamin deficiency 365450095 E53.8 [id number] Dale Cavanaugh, [facility] [address] [facility] [place] [address] 02/22/2024 13:34:10 02/22/2024 14:11:29 Chronic kidney disease stage 3 767136737 N18.31 we will need to rechk and get a cmp Hyperlipidemia 39966793 E78.2 we will need to have this rechecked for the next lab draw Essential hypertension 19187213 I10 bp has been doing well no major issues Hypothyroidism 52095670 E03.8 needs tsh done Memory impairment 360397 006 R41.3 she seems very alert and appropriat e today Body mass index 30+ - obesity 911430351 Z68.41 has been for years not going to change diet Hyperparathyroidism 6699 9008 E21.3 check lab [id number] ANTONIO GR [facility] [address] [facility],[place] [address] [place] [facility] [address] 03/11/2024 09:37:17 03/11/2024 10:47:16 Cobalamin deficiency 819685768 E53.8 [id number] [facility] [address] [facility],[place] [address] [facility] [address] 04/05/2024 13:57:20 04/06/2024 08:11:42 Depression screening 688475846 Z13.31 stable Basal cell carcinoma of face 740708403 C44.319 agreed to derm appt for eval and biopsy [id number] Dale Cavanaugh [facility] [address] [facility], it[address] [facility] [address] 04/08/2024 09:48:52 04/08/2024 15:46:55 Cobalamin deficiency 125631435 E53.8 [id number] Dale Cavanaugh [facility] [address] [facility] [address] 05/11/2024 09:34:56 05/11/2024 10:30:34 Cobalamin deficiency 191060279 E53.8 [id number] Dale Cavanaugh [facility] [address] [facility], it[address] [place] [facility] [address] 06/10/2024 09:30:05 06/10/2024 11:27:48 Cobalamin deficiency 081274335 E53.8 [id number] Dale Cavanaugh [facility] [address] [facility], it[address] [facility] [address] 07/18/2024 09:37:08 07/18/2024 10:23:41 Cobalamin deficiency 053877058 E53.8 [id number] Dale Cavanaugh [facility] [address] [facility], it[address] [facility] [address] 08/10/2024 09:30:43 08/10/2024 09:41:31 Cobalamin deficiency 751786763 E53.8 [id number] Dale Cavanaugh [facility] [address] [facility], [place] [address] 08/22/2024 15:31:36 08/22/2024 15:50:10 Hypothyroidism 44959302 E03.8 needs tsh done Memory impairment 838056 006 R41.3 she seems very alert and appropriat e today Hyperparathyroidism 6699 9008 E21.3 check lab Chronic ki dney disease stage 3 337014497 N18.31 we will need to rechk and get a cmp Ecchymosis 105112487 R58 multiple areas over the zhang of her left leg and less so on the right [id number] Dale Cavanaugh [facility] [address] [facility],[place] [address] 09/09/2024 09:34:20 09/09/2024 10:54:57 Cobalamin deficiency 236042679 E53.8 [id number] Dale Cavanaugh [facility] [address] [facility],[place] [address] 10/12/2024 09:34:01 10/12/2024 09:48:37 Cobalamin deficiency 938263550 E53.8 [id number] Dale Cavanaugh [facility] [address] [facility],[place] [address] 11/16/2024 09:52:16 11/16/2024 10:00:07 Cobalamin deficiency 652807411 E53.8 [id number] Dale Cavanaugh [facility] [address] [facility], [place] [address] 12/14/2024 09:35:11 12/14/2024 11:21:06 Cobalamin deficiency 542726375 E53.8 [id number] Dale Cavanaugh [facility] [address] [facility], [place] [address] 01/30/2025 10:34:52 01/30/2025 11:43:28 Cobalamin deficiency 119307244 E53.8 [id number] Dale Cavanaugh [facility] [address] [facility], [place] [address] 02/08/2025 09:20:30 02/08/2025 09:39:11 Depression screening 308437939 Z13.31 neg Chronic ki dney disease stage 3 733191501 N18.31 we will need to rechk and get a cmp as tosha last test was sept Essential hypertension 90174944 I10 bp has been doing well no major issues Hyperlipidemia 82403401 E78.2 we will need to have this rechecked for the next lab draw Hypothyroidism 16659632 E03.8 needs tsh done now Vitamin D deficiency 347 03357 E55.9 needs lab Vitamin B1 2 deficiency (non anemic) 06230246 E53.8 Health Concerns Section Related Observation LastModified by Organization Detai ls LastModified Time None Recorded Concern Status LastModified by Organization Details LastModified Time None Recorded Advance Directives Directive None Recorded Payers Encounter Date Sequence Insurance Name Policy Number Policy Rubio Covered Member ID Rubio Member ID Guarantor Name 10/12/2024 1 [employer]: [facility] - [employer] 111 Teresa L Broadhurst [id number] Teresa Broadhurst 11/16/2024 1 [employer]: [facility] - [employer] 111 Teresa L Broadhurst [id number] Teresa Broadhurst 12/14/2024 1 [employer]: [facility] - [facility] [facility]EE [employer] 111 Teresa L Broadhurst [id number] Teresa Broadhurst 01/30/2025 1 [employer]: [facility] [employer] - [employer]EE [employer]GRAM 111 Teresa L Broadhurst [id number] Teresa Broadhurst 02/08/2025 1 [employer]: [facility] EMPLOYEE PROGRAM 111 Teresa L Broadhurst [id number] Teresa Broadhurst Notes Date Note Type Note Provider Name and Address Organization Details Recorded Time 2024 text/h tml Care Management - HypertensionReported bypatient.Self Care:not under emotional stress Severity:symptoms are improving; does not interfere with daily activities Associated Symptoms:no dizziness; no lightheadedness; no chest pain; no shortness of breath; no palpitations; no edema; no calf muscle cramps; no blurred vision; no confusion; no headaches; no fatigueHyperparathyroidismReported bypatient.Associated Symptoms:no hoarseness; no fatigue; normal mood; no abdominal pain; no nephrolithiasis; no osteoporosis; no osteopenia; normal eGFR; no arthritis; no myalgias; no decreased concentration; no memory loss; no constipation; no polydipsia; no polyuria; no nocturia; no hypertension; no anorexia; no nausea; no palpitations; no acid reflux/heartburn; no pancreatitis; no ulcers; no psychosis; no weight loss; no bone pain; no vomiting; no dementia; no pruritis; no vertebral fractureThyroidReported bypatient.Onset/Timing:better Context:normal thyroid levels; no history of head or neck radiation during childhood; no history of thyroid disease; no history of hypothyroidism; no history of hyperthyroidism; no excess iron exposure Exercisegets exercise Associated Symptoms:no cold intolerance; no heat intolerance; no weight loss; no weight gain; no double vision; no dry eyes; no hoarseness; no difficulty swallowing; no neck masses; no deepening of the voice; no fast heart rate; no increased blood pressure; no palpitations; no chest pain; no chest tightess or pressure; no constipation; no diarrhea; no vomiting; no decreased appetite; no loose stools; no irregular menstrual periods; no excessive sweating; no joint pain; no numbness; no tingling of the hands or feet; no dry skin; no tremor; no nervousness; no anxiety; no depression; no fatigue; no sleep difficulties; no skin changes; no hair changes rechk today and is feeling ebtter as she has just had a viral illness and had URI and diarrhea and is finally feeling better and is eating better nowhad head cold sx and is doing betterstill getting B12 here for rechk and is doing ok overallrelates that she had her eyes done and her teethshe is getting her physical therapyshe knows her skin gets thinner and she is constantly bruising herself and having a hard timerelates she is feeling better overall aDle Cavanaugh, DO [address] [place], [address], [place] [facility] 5 09:39:09 OBGyn Episode No OBEpisode recorded.
[2025-02-08 14:07] LABS: MANUAL DIFF FLAG NO
[2025-02-08 14:13] LABS: Basophils Percent Auto 0.6 % (0-2); Eosinophils Absolute Auto 0.2 X10*3/uL (0.0-0.4); Eosinophils Percent Auto 2.8 % (0-4); Hematocrit 44.7 % (37.0-47.0); Hemoglobin 14.8 g/dl (12.0-16.0); Imm Gran Abs Auto 0.02 X10*3/uL (0.00-0.03); Imm Gran Pct Auto 0.3 % (0.0-0.4); Lymphocytes Absolute Auto 1.8 X10*3/uL (1.2-4.9); Lymphocytes Percent Auto 25.9 % (20-40); Mean Corpuscular HGB Conc 33.1 g/dl (31.0-35.0); Mean Corpuscular Hemoglobin 29.3 pg (27.0-33.0); Mean Corpuscular Volume 88.5 fL (80.0-98.0); Monocytes Absolute Auto 0.6 X10*3/uL (0.1-1.2); Monocytes Percent Auto 9.3 % (2-11); Neutrophils Absolute Auto 4.2 x10*3/uL (2.0-8.3); Neutrophils Percent Auto 61.1 % (45-73); Platelet Count 210 X10*3/uL (160-400); Red Blood Count 5.05 X10*6/uL (4.20-5.50); Red Cell Distribution Width 13.3 % (11.0-16.0); White Blood Count 6.8 X10*3/uL (4.8-10.8)
[2025-02-08 14:56] LABS: Parathyroid Hormone Intact 133.6 pg/mL (8.7-77.1)
[2025-02-08 15:20] LABS: Vitamin B12 1141 pg/mL (200-900)
[2025-02-08 17:26] LABS: Alanine Aminotransferase 10 U/L (0-31); Albumin Level 3.9 g/dL (3.5-5.0); Alkaline Phosphatase 68 U/L (39-117); Anion Gap 12 (12-20); Aspartate Amino Transferase 27 U/L (5-31); Bilirubin Total 0.9 mg/dL (0.0-1.0); Blood Urea Nitrogen 17 mg/dL (9-16); Calcium 9.4 mg/dL (8.4-10.2); Carbon Dioxide 26 mmol/L (22-29); Chloride 109 mmol/L (96-108); Estimated Glomerular Filt Rate 48; Glucose Random 87 mg/dL (60-115); Phosphorus 3.1 mg/dL (2.7-4.5); Potassium 4.1 mmol/L (3.3-5.1); Sodium 143 mmol/L (135-145); Thyroid Stimulating Hormone 1.29 uIU/mL (0.32-4.0); Total Protein 6.6 g/dL (6.5-8.0); Vitamin D 25-OH Total 18.1 ng/mL (>30)
== END 2025-02-08 09:41 | disposition home or self-care (01) ==
LOC: HO.MANLDS 09:40
PROVIDERS: Visit Provider Internal Medicine
DX: N18.31 Chronic kidney disease, stage 3a (principal); I10 Essential (primary) hypertension; E55.9 Vitamin D deficiency, unspecified; E53.8 Deficiency of other specified B group vitamins; E03.8 Other specified hypothyroidism
CPT/HCPCS: 36415; 80053; 82306; 82607; 83735; 83970; 84100; 84443; 85025